=== PATIENT | female | born 1995 | race Caucasian/White ===

== ENCOUNTER → 2022-03-12 15:22 | Outpatient (CLI) | payer OTHER, SELFPAY ==
--- NOTE | ~2022-03-12 | US_ITS ---
EXAMINATION: US thyroid DATE: 03/12/2022 15:44 INDICATION: Enlarged thyroid TECHNIQUE: Multiple ultrasound images of the thyroid were obtained. COMPARISON: None. FINDINGS: The right thyroid lobe measures 4.9 x 1.0 x 1.1 cm. The left thyroid lobe measures 4.3 x 0.7 x 1.1 c m. And by 3 x 4 mm solid hypoechoic nodule which is wider than tall with ill-defined margins and wit hout internal echogenic foci (TI-RADS 4, moderately suspicious , FNA if >=1.5 cm, annual followup is >=1 cm) at the inferior right thyroid lobe. There is normal echotexture, echogenicity and vascular fl ow throughout the remainder of the thyroid gland. IMPRESSION: 1. 9 mm TI RADS 4 nodule at the inferior right thyroid which remains below size threshold for recomme ndation for either biopsy or follow-up. Otherwise normal thyroid. Reviewed, dictated and finalized at location A. [facility] IMPRESSION: 1. 9 mm TI RADS 4 nodule at the inferior right thyroid which remains below size threshold for recommendation for either biopsy or follow-up. Otherwise normal thyroid.
== END ==
DX: E04.9 Nontoxic goiter, unspecified (principal)
CPT/HCPCS: 76536

== ENCOUNTER 2022-06-06 09:45 | Outpatient (CLI) | payer OTHER, SELFPAY ==
[2022-06-06 09:59] LABS: Hematocrit 43.2 % (37.0-47.0); Hemoglobin 14.3 g/dL (12.0-15.0); Mean Corpuscular HGB Conc 33.1 g/dl (32-36); Mean Corpuscular Hemoglobin 28.3 pg (26-34); Mean Corpuscular Volume 85.4 fl (80-100); Platelet Count Result 302 k/mm3 (150-375); Red Blood Count 5.06 M/mm3 (4.2-5.4); Red Cell Distribution Width 12.4 % (11.5-14.5); White Blood Count 7.3 K/mm3 (4.5-10.0)
[2022-06-06 10:13] LABS: Alanine Aminotransferase 18 U/L (6-35); Albumin Level 4.3 g/dL (3.5-5.1); Alkaline Phosphatase 63 U/L (38-126); Anion Gap 3 mmol/L (8-16); Aspartate Amino Transferase 23 U/L (14-36); Bilirubin,Total 0.5 mg/dL (0.2-1.3); Blood Urea Nitrogen 7 mg/dL (7-17); Calcium 9.3 mg/dL (8.4-10.2); Carbon Dioxide 29 mmol/L (22-30); Chloride 104 mmol/L (98-107); Cholesterol 199 mg/dL (0-200); Estimated Glomerular Filt Rate > 60; Glucose 89 mg/dL (65-110); HDL Direct 54 mg/dL; Potassium 4.5 mmol/L (3.4-5.0); Sodium 136 mmol/L (137-145); Triglycerides 108 mg/dL (<150)
[2022-06-06 10:24] LABS: LDL Cholesterol Direct 117 mg/dL
[2022-06-06 10:35] LABS: Iron 153 ug/dL (37-170)
[2022-06-06 10:44] LABS: Percent Iron Saturation 43 % (20-50)
[2022-06-06 13:12] LABS: Hepatitis C Virus Antibody Negative (Negative)
== END 2022-06-06 09:46 | disposition home or self-care (01) ==
DX: Z00.00 Encounter for general adult medical examination without abnormal findings (principal)
CPT/HCPCS: 36415; 80053; 80061; 82728; 83540; 83550; 84443; 85027; 86803